=== PATIENT | female | born 1970 | race Caucasian/White ===

== ENCOUNTER → 2017-05-01 | Outpatient (CLI) | payer BC ==
[~2017-05-01] MED LIST: MIRENA52 MG; NO HOME MEDICATIONS; PREDNISONE20 MG PO
== END ==
LOC: MC.RAD 14:00
DX: Z12.31 Encounter for screening mammogram for malignant neoplasm of breast (principal)

== ENCOUNTER → 2019-06-02 | Outpatient (CLI) | payer BC | LOC: MC.RAD 16:08 | DX: Z12.31 Encounter for screening mammogram for malignant neoplasm of breast (principal) ==

== ENCOUNTER 2020-11-30 06:52 | Day surgery (SDC) | payer BC ==
[~2020-11-30] VITALS: Ht 165.1 cm; Wt 59.6 kg
[2020-11-30] MEDS ORDERED: CLARITIN 1010 MG/TAB PO (07:07)
[2020-11-30 07:28] VITALS: BP 104/58; PULSE 53; TEMP 97.7
[2020-11-30 09:05] VITALS: BP 100/57; PULSE 48; TEMP 97.1
--- NOTE | 2020-11-30 09:05 | NUR ---
PATIENT BROUGHT BACK TO ENDO ROOM 1 VIA CART. PLACED ON MONITORS, VITAL SIGNS STABLE. PATIENT STEADY ON FEET, AWAKE. REPORT RECIEVED FROM GAURAV CORTEZ, ALL QUESTIONS ANSWERED. PATIENT DENIES PAIN OR NAUSEA. STATES SHE WOULD JUST LIKE JUICE AT THIS TIME. IV INFUSING TO RIGHT HAND. WARM BLANKET PROVIDED, CALL [facility] WITHIN REACH. WILL MONITOR.
[2020-11-30 09:20] VITALS: BP 90/53; PULSE 57
--- NOTE | 2020-11-30 09:20 | NUR ---
PATIENT TOLERATING DRINK WITHOUT DIFFICULTY. STATES SHE FEELS READY TO GET DRESSED. AWAITING TO SPEAK WITH DR. CARR.
[2020-11-30 09:35] VITALS: BP 103/76; PULSE 50
--- NOTE | 2020-11-30 09:35 | NUR ---
PATIENT FEELS READY TO GO HOME AT THIS TIME. IV REMOVED, INTACT. PATIENT TO GET DRESSED AT THIS TIME. DR. CARR AT BEDSIDE TO EXPLAIN RESULTS.
--- NOTE | 2020-11-30 09:45 | NUR ---
DISCHARGE INSTRUCTIONS REVIEWED WITH PATIENT, ALL QUESTIONS ANSWERED. PATIENT BROUGHT DOWN TO LOBBY VIA WHEEL CHAIR. ALL BELONGINGS IN HAND. RIDE MET AT FRONT DOOR.
== END 2020-11-30 09:45 | disposition home or self-care (01) ==
LOC: SDCO 06:52
DX: Z12.11 Encounter for screening for malignant neoplasm of colon (principal); D12.3 Benign neoplasm of transverse colon; J30.9 Allergic rhinitis, unspecified; Z20.822 Contact with and (suspected) exposure to COVID-19
CPT/HCPCS: J7120

== ENCOUNTER → 2021-01-17 | Outpatient (CLI) | payer BC ==
[~2021-01-17] MED LIST changes: +CLARITIN 1010 MG/TAB PO
== END ==
LOC: MC.RAD 14:47
DX: Z12.31 Encounter for screening mammogram for malignant neoplasm of breast (principal)

== ENCOUNTER → 2023-05-23 | Outpatient (CLI) | payer BC | LOC: MC.RAD 08:05 | DX: Z12.31 Encounter for screening mammogram for malignant neoplasm of breast (principal) ==